=== PATIENT | male | born 1950 | race Caucasian/White ===

== ENCOUNTER 2022-08-27 09:48 | Outpatient (CLI) | payer MEDICARE, SELFPAY ==
--- NOTE | 2022-08-27 10:12 | ECG_ITS ---
Measurements Intervals [place] Rate: 66 P: 80 TN: 184 QRS: -1 QRSD: 108 T: 51 QT: 394 QTc: 415 Interpretive Statements SINUS RHYTHM WITH SINUS ARRHYTHMIA INCOMPLETE RIGHT BUNDLE BRANCH BLOCK CONSIDER INFERIOR INFARCT, AGE INDETERMINATE ABNORMAL ECG NO PREVIOUS ECG AVAILABLE FOR COMPARISON Electronically Signed On 08-27-2022 11:53:16 CDT by Sherman Burt D.O.
[2022-08-27 10:38] LABS: Hemoglobin A1C 5.9 % (<5.7)
[2022-08-27 10:45] LABS: Albumin Level 4.7 g/dL (3.5-5.1); Estimated Glomerular Filt Rate 60; Glucose 102 mg/dL (65-110)
[2022-08-27 10:51] LABS: Hematocrit 43.7 % (42.0-52.0); Hemoglobin 15.1 g/dL (14.0-18.0)
[2022-08-27 10:58] LABS: Urine Cotinine NEGATIVE
== END 2022-08-27 09:49 | disposition home or self-care (01) ==
PROVIDERS: Visit Provider Orthopaedic Surgery
DX: M16.12 Unilateral primary osteoarthritis, left hip (principal); E78.5 Hyperlipidemia, unspecified; E55.9 Vitamin D deficiency, unspecified; J44.9 Chronic obstructive pulmonary disease, unspecified; I10 Essential (primary) hypertension; I45.10 Unspecified right bundle-branch block
CPT/HCPCS: 36415; 80307; 82040; 82565; 82947; 83036; 85014; 85018; 93005

== ENCOUNTER 2022-09-26 13:07 | Outpatient (CLI) | payer MEDICARE, SELFPAY ==
--- NOTE | ~2022-09-26 | XR_ITS ---
EXAMINATION: XR lg joint inject/asp w image DATE: 09/26/2022 14:01 INDICATION: Right hip pain. TECHNIQUE: A time-out was performed to verify the patient's name, date of , and procedure to b e performed. The procedure including the risks, benefits, and alternatives was discussed with the pat ient. Risks discussed included bleeding and infection. The patient understood the risks and agreed to proceed. The skin overlying the right hip joint was prepped and draped in usual sterile fashion. A nesthetic was administered with 1% lidocaine subcutaneously. A 22 G needle was advanced under fluoro scopic guidance into the joint. Subsequently, injectate consisting of 5 mL 0.5% bupivacaine and 1 mL 80 mg/mL Depo-Medrol was instilled. The needle was removed and the entry site was cleaned and dress ed. There were no immediate complications. Fluoroscopy exposure time was 0.1 minutes. The total numb er of images was 1. FINDINGS: Real-time fluoroscopy demonstrates the needle in the right hip joint. Patient's pain prior to procedure:4/10. Patient's pain following the procedure: 0/10. IMPRESSION: 1. Fluoroscopy guided right hip joint injection of local anesthetic and steroid with decrease in the patient's presenting pain. Reviewed, dictated and finalized at location A.
== END 2022-09-26 13:08 | disposition home or self-care (01) ==
PROVIDERS: PCP Physician Assistant Medical; Visit Provider Orthopaedic Surgery
DX: M70.61 Trochanteric bursitis, right hip (principal); M25.551 Pain in right hip
CPT/HCPCS: 20610; 77002; J1040

== ENCOUNTER 2022-12-27 11:23 | Outpatient (CLI) | payer MEDICARE, SELFPAY ==
[2022-12-27 13:12] LABS: Basophils Absolute Auto 0.1 K/mm3 (0.0-0.1); Basophils Percent Auto 1.2 % (0.2-1.2); Eosinophils Absolute Auto 0.3 K/mm3 (0-0.3); Eosinophils Percent Auto 2.5 % (0-4.4); Hematocrit 45.2 % (42.0-52.0); Hemoglobin 15.2 g/dL (14.0-18.0); Immature Granulocyte Absolute 0.05 K/mm3 (0.00-0.031); Immature Granulocyte Percent A 0.5 % (0-0.5); Lymphocytes Absolute Auto 2.91 K/mm3 (0.9-3.2); Lymphocytes Percent Auto 28.4 % (18.3-44.2); Mean Corpuscular HGB Conc 33.6 g/dl (32-36); Mean Corpuscular Hemoglobin 32.6 pg (26-34); Mean Platelet Volume 9.1 fl (7.4-10.4); Monocytes Absolute Auto 0.9 K/mm3 (0.1-0.6); Monocytes Percent Auto 9.1 % (2.6-8.5); Neutrophils Percent Auto 58.3 % (45.5-73.1); Platelet Count Result 396 k/mm3 (150-375); Red Blood Count 4.66 M/mm3 (4.6-6.20); Red Cell Distribution Width 12.8 % (11.5-14.5); White Blood Count 10.2 K/mm3 (4.5-10.0)
[2022-12-27 13:27] LABS: Hemoglobin A1C 5.8 % (<5.7)
[2022-12-27 13:37] LABS: Albumin Level 4.9 g/dL (3.5-5.1)
[2022-12-27 13:47] LABS: Anion Gap 11 mmol/L (8-16); Blood Urea Nitrogen 20 mg/dL (9-20); Calcium 9.8 mg/dL (8.4-10.2); Carbon Dioxide 26 mmol/L (22-30); Chloride 101 mmol/L (98-107); Estimated Glomerular Filt Rate > 60; Glucose 101 mg/dL (65-110); Potassium 4.5 mmol/L (3.4-5.0); Sodium 138 mmol/L (137-145)
[2022-12-27 14:48] LABS: Urine Cotinine NEGATIVE
== END 2022-12-27 11:24 | disposition home or self-care (01) ==
PROVIDERS: Anesthesiology; PCP Physician Assistant Medical; Visit Provider Orthopaedic Surgery
DX: M16.12 Unilateral primary osteoarthritis, left hip (principal); Z79.899 Other long term (current) drug therapy; I10 Essential (primary) hypertension; Z72.0 Tobacco use; Z01.818 Encounter for other preprocedural examination
CPT/HCPCS: 80048; 80307; 82040; 83036; 85025; 87081

== ENCOUNTER 2023-01-21 19:08 | Observation (INO) | payer MEDICARE, SELFPAY ==
[2022-12-27 12:05] VITALS: BMI 39.1
--- NOTE | 2022-12-27 12:34 | PC.NURSE ---
Report to the Outpatient Waiting Room, entrance under the green pavilion located off [facility], at time 1000 on date __01/20/23 . Planned Procedure Time: ___1200 . Time changes happen often and if your time is changed the preop area will call you the afternoon before. - You and your visitor will be asked to self-screen and do not enter if you have any COVID symptoms. - A mask is optional within the hospital at this time. Patients may have clear liquids (water, carbonated beverages, clear teas, apple juice) until 3 hours prior to surgery with a maximum of 20 ounces. - No food from midnight until time of surgery - Infants may have breast milk until 4 hours before surgery, formula 6 hours prior to surgery. - Children will be allowed to drink immediately following surgery. If applicable, please bring a bottle or sippy cup to assist with drinking. Juice, water, soda, and popsicles are readily available. For infants on formula, please bring formula the day of surgery. Pacifiers are allowed. Take the following medications with a SIP of water the morning of surgery: ____TRELEGY INHALER,HYDROCODONE IF NEEDED FOR PAIN,VENLAFAXINE DO NOT STOP ANY OF YOUR OTHER PRESCRIPTION MEDICATIONS PRIOR TO SURGERY ?EXCEPT THE FOLLOWING Medications to discontinue per physician _PT STATES ALL VITAMINS AND SUPPLEMENTS AND__ASPIRIN AND ADVIL HOLD 7 DAYS PRE OP_PER DR VIGIL.LAST DOSE 01/12/23 Please no make-up, nail scottish, hairspray, perfume, deodorant, or body powder the day of surgery. No jewelry (including any body piercings) or valuables the day of surgery, leave them at home. Please take a shower or bath the night before, or the morning of, surgery with an antibacterial soap. Wear comfortable, loose fitting clothing. Children are encouraged to wear pajamas. - Jewelry must be removed prior to entering the operating room. Rings and piercings that are not removed may be cut off. - The hospital will not accept responsibility for valuables. - Please leave all valuables, including medications, at home the day of surgery. If you are going home after surgery, a licensed laundry route driver must drive you home. - NO public transportation without another adult if you receive anesthesia. - We recommend that an adult stay with you for 24 hours following discharge. - We also recommend that you do not drive, make important decision, drink alcoholic beverages, or take any drugs that were not prescribed by your health care provider for at least 24 hours after your discharge time. For Pediatric surgeries, we recommend two adults accompany the child home. Follow any additional instructions given to you from your surgeon. If you or anyone in your household have experienced Covid symptoms in the past week, please notify your surgeon or the nurse liaison at the phone number below for possible testing. VERBAL AND WRITTEN instructions given to ___PT AND DEB and asked if any additional questions and then verbalized understanding. Patient advised to call surgeon office or pre surgery nurse liaison [phone] if any additional questions.
[2022-12-27 12:53] VITALS: BP 161/80; PULSE 86; RESP 18; TEMP 37.2; O2SAT 95
[2023-01-20] VITALS (15 sets, daily range): BP systolic 104–140; BP diastolic 48–93; PULSE 66–89; RESP 12–20; TEMP 36.4–36.8; O2SAT 91–99
[2023-01-20] MEDS: ACETAMINOPHEN 500 MG TABLET 1000 MG PO ×3 (10:37→20:16)
--- NOTE | 2023-01-20 10:52 | WPDANESEPPF ---
Anes - Initial Pre Proc Eval Procedure: Operation Date: 01/20/23 12:00 Proposed Procedures p Left Total Hip Arthroplasty - Willard Hester MD Date/Time: 01/20/23 10:52 Surgeon: Willard Hester MD Pre Op Diagnosis: Prim O A Left Hip Patient Data Age: 72 Gender: M Height: 1.77 m Weight: 108 kg Last Vital Signs Temp 37.2 C 12/27/22 12:53 Pulse 86 12/27/22 12:53 Resp 18 12/27/22 12:53 BP 161/80 H 12/27/22 12:53 Pulse Ox 95 12/27/22 12:53 O2 Del Method Room Air 12/27/22 12:53 Allergies Allergy/AdvReac Type Severity Reaction Status Date / Time Penicillins Allergy Unknown unknown Verified 12/27/22 12:07 Home Medications Medication Instructions Recorded Confirmed Type aspirin 81 mg tablet,delayed 81 mg PO DAILY 04/07/19 12/31/22 History release (Adult Low Dose Aspirin) coenzyme Q10 200 mg capsule (Co 200 mg PO DAILY 04/07/19 12/31/22 History Q-10) omega-3 fatty acids 1,000 mg 1,000 mg PO DAILY 04/07/19 12/31/22 History capsule (Fish Oil Concentrate) atorvastatin 40 mg tablet 40 mg PO DAILY #90 tabs 06/03/22 12/31/22 Rx fluticasone fur. 100 mcg-umeclid See Rx Instructions .Route 06/03/22 12/31/22 Rx 62.5 mcg-vilant 25 mcg .COMPLEX ##60 inhalat.powder (Trelegy Ellipta) hydrochlorothiazide 12.5 mg tablet 12.5 mg PO DAILY #90 tabs 06/03/22 12/31/22 Rx magnesium oxide 400 mg (241.3 mg 400 mg PO DAILY #90 tabs 06/03/22 12/31/22 Rx magnesium) tablet pantoprazole 20 mg tablet,delayed 20 mg PO QAM 90 days #90 tabs 06/03/22 12/31/22 Rx release venlafaxine 75 mg capsule,extended 75 mg PO QAM #90 caps 06/03/22 12/31/22 Rx release 24 hr hydrocodone 5 mg-acetaminophen 325 1 tablet PO Q6H PRN pain #30 tabs 08/05/22 12/31/22 Rx mg tablet varenicline 1 mg tablet (Chantix 1 mg PO BID #60 tabs 11/18/22 12/31/22 Rx Continuing Month Box) amlodipine 5 mg tablet 5 mg PO HS 12/27/22 12/27/22 History cholecalciferol (vitamin D3) 125 125 mcg PO DAILY 12/27/22 12/27/22 History mcg (5,000 unit) tablet cyanocobalamin (vitamin B-12) 1,000 mcg PO DAILY 12/27/22 12/27/22 History 1,000 mcg tablet diazepam 5 mg tablet 5 mg PO PRN PRN Pain 12/27/22 12/27/22 History ibuprofen 200 mg tablet (Advil) 400 mg PO Q6H PRN Pain 12/27/22 12/27/22 History Patient hx anesthesia problems: none Family hx anesthesia problems: none Results Review: All pre-operative results and documents have been reviewed as part of the pre-operative evaluation. [facility] Past Medical History Medical History Anxiety Dyslipidemia Essential hypertension GERD (gastroesophageal reflux disease) Multinodular goiter TAMI (obstructive sleep apnea) Surgical perforation of duodenum Vitamin D deficiency Surgical History Surgical History History of cervical spinal surgery History of spinal surgery Family History Family History Father Acute myocardial infarction Diabetes mellitus Malignant neoplasm of prostate Other Family history of cardiovascular disease Hypertension Social History Social History Social History: pt previously smoked a pack and a half a day. He has quit. Smoking packs per day: 1.5 Smoking cigarettes per day: 30.0 Years smoked: 50 Smoking pack-years: 75.00 Smoking status: Former smoker Tobacco type: cigarettes Smoking end date: 11/25/22 Additional smoking assessment comments: DENIES ANY FORM OF TOBACCO USE Alcohol intake: current Drinks per week: 21 Substance use: never Substance use type: does not use Lack of Transportation: No Lack of Food: Never True Current Housing: I Have Housing Concerned About Future Housing: No Difficulty Paying Gas/Electric Bills: No Difficulty Paying for Meds: No Currently Unemployed: No Ed
--- NOTE | 2023-01-20 10:53 | WPDHPUPDATE1 ---
History and Physical Update Update Date/Time: 01/20/23 10:53 History and Physical has been reviewed, including an updated exam of the patient. There are NO changes in the patient's condition. Risks, benefits, and alternatives have been discussed and questions answered. Patient agrees to proceed with procedure.
[2023-01-20] MEDS: LACTATED RINGERS 1,000 ML 30 ML IV CONT ×2 (11:10→14:05)
[2023-01-20] MEDS: TRANEXAMIC ACID 1,000MG/ISO100 1,000 MG/100 ML BAG 200 MG IVPB (11:10)
[2023-01-20] MEDS: ceFAZolin 3 GM/D5W 100 ML 100 ML IVPB (11:34)
[2023-01-20] MEDS: fentaNYL CITRATE INJ (*CRX) 100 MCG/2 ML VIAL 25 MCG IV PUSH ×7 (14:26→15:25)
--- NOTE | 2023-01-20 15:37 | W.PM.PROC2 ---
Procedure Note - Detailed Date of Procedure 01/20/23 Pre-op Diagnosis Prim O A Left Hip Post-op Diagnosis Other (1. DJD left hip 2. Partial abductor muscle tear) Procedure Performed 1. Left Total Hip Arthroplasty with abductor muscle repair. Surgeon Willard Hester MD Plastic Maker Leonarda Mccarthy PA-C Anesthesia General Findings Partial abductor tearing. Repaired with multiple Ethibond suture. Severe djd with osteophytes and loose bodies. Type A femur required distal reaming. He complained of leg being short preoperatively. Partial correction was performed. Description of Procedure The patient was given preoperative antibiotics. A general anesthetic was administered. The patient was carefully placed in the lateral decubitus position on the PEG board. The shoulders and hips were carefully positioned for component and leg length positioning reference. The hip was prepped and draped in the usual sterile fashion. A longitudinal incision was created over the posterior aspect of the greater trochanter. Careful dissection was brought down through the deep fascia with electrocautery. A minimally invasive optimized posterior approach to the hip was performed. The short external rotators and capsule were taken down in an L-shaped capsulotomy. The tissue was tagged for later repair using number 2 high strength suture. The femoral neck was measured and taken in situ. The femoral head was removed. The acetabulum was carefully exposed. The inferior capsule was released. The labrum was resected. The acetabulum was sequentially reamed to the intended cup size. The cup was impacted into position with excellent press-fit. Typical anatomic landmarks, including the bony contact points as well as the inferior transverse acetabular ligament were used to confirm cup positioning with preoperative templating. Attention was turned to the femur, which was carefully exposed. The hip was reamed and then broached sequentially. Flexible reaming was done as well up to 13mm. Excellent proximal press-fit was obtained with the broach. The hip was trialed. Measurements were utilized, including the lesser trochanter as well as the center of the femoral head and the tip of the trochanter, and excellent assessment of the offset and leg lengths were confirmed. The real component was impacted into position. Trialing confirmed appropriate leg length and offset with soft tissue balancing as well apparent feel of the leg, both at the knee and the heel. Soft tissues were assessed using the the iliotibial band. Reduction of the posterior capsule and external rotators were also used as a secondary assessment. The hip was copiously irrigated with pulsatile lavage antibiotic solution periodically throughout the procedure. The real components were then assembled and reduced. The hip was stable throughout typical maneuvers, including extension, external rotation to 70 degrees, the position of sleep as well as flexion to 90 degrees with internal rotation past 35 degrees. The shake test confirmed stability without impingement. Osteophytes were removed from the anterior acetabulum. The short external rotators and capsule were repaired back to the posterior trochanter through drill holes. The gluteus medius split partial tear was converged and reapproximated to the greater trochanter. The deep fascia was repaired with running number 2 Quill suture, followed by 2-0 Stratafix suture and 3-0 Stratafix suture in the dermis. Steri-Strips were placed on the skin, followed by a sterile silver occlusive dressing. There were no complications. Meticulous hemostasis was maintained with the AquaMantys device. The patient was brought to the recovery room in stable condition. There were no complications. Physician assistant bookkeeper, Leonarda Mccarthy PA-C, required for surgery; including patient positioning, draping, tissue retraction, maintaining instrument position, hip dislocation/ relocation, wound closure, and d
[2023-01-20] MEDS: ASPIRIN 81 MG ENTERIC TABLET PO (16:59)
[2023-01-20] MEDS: MELOXICAM 7.5 MG TABLET PO (17:00)
[2023-01-20] MEDS: SENNA/DOCUSATE SODIUM TABLET 2 TAB PO (17:00)
[2023-01-20 17:11] LABS: Hematocrit 40.6 % (42.0-52.0); Hemoglobin 13.5 g/dL (14.0-18.0)
--- NOTE | 2023-01-20 17:41 | ADMGEN ---
This patient, Henrry Yan, was admitted to Medical Room 250-01. Patient/family oriented to hospital policies and general routines including ID bracelet, bed and alarms, visiting hours, pain management, procedures, bathroom and other care routines, personal items, smoking policy, room service/diet, and visiting hours. Information on how to activate the Rapid Response Team has been discussed. Patient/Family are encouraged to report perceived risks to care and to ask questions if they do not understand what they are told or what they should do.
[2023-01-20] MEDS: ceFAZolin 2 GM/D5W 50 ML 2 GM/50 ML BAG IVPB (20:15)
[2023-01-20] MEDS: ATORVASTATIN 40 MG TABLET PO (20:16)
[2023-01-20] MEDS: amLODIPine BESYLATE 5 MG TABLET PO (20:16)
[2023-01-20] MEDS: FAMOTIDINE 20 MG TABLET PO (20:16)
[2023-01-21] VITALS (10 sets, daily range): BP systolic 109–140; BP diastolic 56–72; PULSE 71–80; RESP 16–20; TEMP 35.9–36.8; O2SAT 92–98
--- NOTE | ~2023-01-21 | XR_ITS ---
EXAMINATION: XR hip LT min 2V DATE: 01/20/2023 14:18 INDICATION: Postoperative evaluation following left total hip arthroplasty TECHNIQUE: Anteroposterior and lateral views of the left hip were obtained. COMPARISON: 06/03/2022 FINDINGS: Interval placement of a noncemented left total hip arthroplasty which appears well seated in near deepti tomic alignment. The acetabular component is affixed with a single screw. Small amount of expected collins bcutaneous gas in the postoperative bed. No fractures identified. IMPRESSION: 1. Left total hip arthroplasty, negative for postoperative purposes. Reviewed, dictated and finalized at location A.
[2023-01-21] MEDS: ceFAZolin 2 GM/D5W 50 ML 2 GM/50 ML BAG IVPB ×2 (03:14→12:41)
[2023-01-21] MEDS: ACETAMINOPHEN 500 MG TABLET 1000 MG PO ×4 (03:14→21:48)
[2023-01-21 05:49] LABS: Basophils Absolute Auto 0.1 K/mm3 (0.0-0.1); Basophils Percent Auto 0.3 % (0.2-1.2); Hematocrit 35.8 % (42.0-52.0); Immature Granulocyte Absolute 0.15 K/mm3 (0.00-0.031); Immature Granulocyte Percent A 0.8 % (0-0.5); Lymphocytes Absolute Auto 1.41 K/mm3 (0.9-3.2); Lymphocytes Percent Auto 7.1 % (18.3-44.2); Mean Corpuscular HGB Conc 33.5 g/dl (32-36); Mean Corpuscular Hemoglobin 32.8 pg (26-34); Mean Corpuscular Volume 97.8 fl (80-100); Mean Platelet Volume 9.4 fl (7.4-10.4); Monocytes Absolute Auto 1.5 K/mm3 (0.1-0.6); Monocytes Percent Auto 7.7 % (2.6-8.5); Neutrophils Absolute Auto 16.6 K/mm3 (1.3-6.7); Neutrophils Percent Auto 84.1 % (45.5-73.1); Platelet Count Result 313 k/mm3 (150-375); Red Blood Count 3.66 M/mm3 (4.6-6.20); Red Cell Distribution Width 12.8 % (11.5-14.5); White Blood Count 19.8 K/mm3 (4.5-10.0)
[2023-01-21 05:58] LABS: Anion Gap 8 mmol/L (8-16); Blood Urea Nitrogen 25 mg/dL (9-20); Calcium 8.4 mg/dL (8.4-10.2); Carbon Dioxide 24 mmol/L (22-30); Chloride 102 mmol/L (98-107); Estimated CRCL calculation 66 ml/min; Estimated Glomerular Filt Rate 60; Glucose 121 mg/dL (65-110); Potassium 4.1 mmol/L (3.4-5.0); Sodium 134 mmol/L (137-145)
--- NOTE | 2023-01-21 07:51 | P.PNAN_ITS ---
Anes - Prog Note Post-Op Date/Time: 01/21/23 07:51 Cardiovascular status: normal Respiratory status: normal Airway patency: baseline Mental status: baseline Post-Op hydration status: normal Vital Signs: Last Vital Signs Temp 36.6 C 01/21/23 05:57 Pulse 73 01/21/23 05:57 Resp 18 01/21/23 05:57 BP 115/70 01/21/23 05:57 Pulse Ox 95 01/21/23 05:57 O2 Del Method Autopap 01/21/23 01:48 O2 Flow Rate 10 01/20/23 14:19 Pain Score (VAS): 0 I/O: Intake & Output 01/20/23 01/20/23 01/21/23 15:59 23:59 07:59 Intake Total 500 550 50 Balance 500 550 50 Laboratory Tests 01/21/23 05:15 01/21/23 05:15 01/20/23 01/20/23 01/21/23 10:22 16:59 05:15 WBC 19.8 H RBC 3.66 L Hgb 13.5 L 12.0 L Hct 40.6 L 35.8 L MCV 97.8 MCH 32.8 MCHC 33.5 RDW 12.8 Plt Count 313 MPV 9.4 Immature Gran % (Auto) 0.8 H Neut % (Auto) 84.1 H Lymph % (Auto) 7.1 L [place] % (Auto) 7.7 Eos % (Auto) 0.0 Baso % (Auto) 0.3 Lymph # (Auto) 1.41 [place] # (Auto) 1.5 H Eos # (Auto) 0.0 Baso # (Auto) 0.1 Abs Immat Gran (auto) 0.15 H Absolute Neuts (auto) 16.6 H Absolute Nucleated RBC 0.0 Nucleated RBC % 0.0 Sodium 134 L Potassium 4.1 Chloride 102 Carbon Dioxide 24 Anion Gap 8 BUN 25 H Creatinine 1.20 Estim Creat Clear Calc 66 Estimated GFR 60 Glucose 121 H Calcium 8.4 Blood Type O Positive Antibody Screen Negative Post-procedural complaints: none Patient Feedback: Patient satisfied with anesthetic care.
[2023-01-21] MEDS: FLUTICASONE/UMECLIDIN/VILANTER 100-62.5-25 MCG ELLIPTA 1 PUFF INHALATION (07:55)
[2023-01-21] MEDS: VARENICLINE 1 MG TABLET PO ×2 (08:32→17:12)
[2023-01-21] MEDS: hydroCHLOROthiazide 12.5 MG CAPSULE PO (08:32)
[2023-01-21] MEDS: oxyCODONE HCL (*CRX) 5 MG TAB IR 10 MG PO ×3 (08:32→17:11)
[2023-01-21] MEDS: MAGNESIUM OXIDE 400 MG TABLET PO (08:33)
[2023-01-21] MEDS: SENNA/DOCUSATE SODIUM TABLET 2 TAB PO (08:33)
[2023-01-21] MEDS: VENLAFAXINE HCL XR 75 MG CAP.ER.24H PO (08:33)
[2023-01-21] MEDS: PANTOPRAZOLE SOD SESQUIHYDRATE 20 MG TAB PO (08:33)
[2023-01-21] MEDS: MELOXICAM 7.5 MG TABLET PO ×2 (08:33→17:11)
[2023-01-21] MEDS: FAMOTIDINE 20 MG TABLET PO ×2 (08:33→21:48)
[2023-01-21] MEDS: ASPIRIN 81 MG ENTERIC TABLET PO ×2 (08:33→17:12)
--- NOTE | 2023-01-21 13:21 | PM.PNORT ---
Progress Note: A&P Assessment and Plan (1) Status post total hip replacement, left: Code(s): Z96.642 - Presence of left artificial hip joint Status: Acute (2) Leukocytosis: Code(s): D72.829 - Elevated white blood cell count, unspecified Status: Acute Plan POD #1 Total hip arthroplasty. Patient has an elevated white count today. 19.8 today. Likely post surgical stress response. Will consult the hospitalist. He does have a history of an infected wound on his back after a previous surgery. He is on IV antibiotics and will be given 3 weeks of Keflex post op. Once he is evaluated by the hospitalist and cleared medically patient will be okay for discharge. If he is still here tomorrow, we will recheck his cell counts. He did have an abductor tendon tear and repair during surgery. I recommend using a walker and protected weight bearing for at least 6 weeks. Patient shows good understanding. He has had initial PT and OT and is tolerating it well. Subjective Subjective Date/Time Seen: 01/21/23 13:21 Interval history: Patient resting comfortably in bed. No acute distress. No N/V/D. No chest pain or shortness or breath. No fever. No urinary symptoms. Patient states he does not feel sick. Review of Systems Review of Systems: All systems reviewed & are unremarkable except as noted in HPI and below Exam Narrative: Overweight 72 y/o Male. Resting comfortably in bed. Wearing compression socks bilaterally. Dressing dry and intact with no drainage. Moderate swelling. No ecchymosis. No erythema. No hematoma. Range of motion limited due to pain. Calf nontender. Thigh nontender. Neurologic status intact. No varicosities. Distal pulses palpable. Objective Data Vital Signs Vital Signs: Vital Signs - 24 hr 01/20/23 14:04 01/20/23 14:19 01/20/23 14:34 Temperature 97.9 F Pulse Rate 81 72 73 Respiratory Rate 18 14 12 Blood Pressure 140/69 124/70 104/53 L Pulse Oximetry 97 99 96 Oxygen Delivery Simple Face Mask Simple Face Mask Room Air Oxygen Flow Rate 10 10 01/20/23 14:49 01/20/23 15:04 01/20/23 15:19 Temperature Pulse Rate 69 67 69 Respiratory Rate 13 12 15 Blood Pressure 106/62 118/70 118/70 Pulse Oximetry 92 92 92 Oxygen Delivery Room Air Room Air Room Air Oxygen Flow Rate 01/20/23 15:34 01/20/23 15:55 01/20/23 16:10 Temperature 97.6 F 97.6 F Pulse Rate 71 68 66 Respiratory Rate 18 20 18 Blood Pressure 105/75 119/61 123/66 Pulse Oximetry 91 92 92 Oxygen Delivery Room Air Oxygen Flow Rate 01/20/23 17:40 01/20/23 20:34 01/20/23 21:09 Temperature 97.8 F 98.3 F Pulse Rate 77 73 Respiratory Rate 18 18 Blood Pressure 125/60 122/53 L Pulse Oximetry 96 94 Oxygen Delivery Room Air Oxygen Flow Rate 01/20/23 20:00 01/20/23 21:37 01/20/23 22:00 Temperature 98.3 F Pulse Rate 73 76 76 Respiratory Rate 18 20 18 Blood Pressure 104/48 L Pulse Oximetry 94 96 93 Oxygen Delivery Room Air Autopap Oxygen Flow Rate 01/21/23 01:23 01/21/23 01:48 01/21/23 05:23 Temperature 97.7 F 97.9 F Pulse Rate 76 71 73 Respiratory Rate 18 20 18 Blood Pressure 113/56 L 109/63 Pulse Oximetry 93 96 93 Oxygen Delivery Autopap Oxygen Flow Rate 01/21/23 05:57 01/21/23 07:55 01/21/23 08:10 Temperature 97.9 F Pulse Rate 73 Respiratory Rate 18 Blood Pressure 115/70 Pulse Oximetry 95 92 Oxygen Delivery Room Air Room Air Oxygen Flow Rate 01/21/23 08:22 01/21/23 08:00 01/21/23 12:15 Temperature 97.7 F 97.3 F L Pulse Rate 77 75 Respiratory Rate 18 17 Blood Pressure 137/67 118/62 Pulse Oximetry 97 98 Oxygen Delivery Room Air Oxygen Flow Rate Intake/Output Intake/Output: Intake & Output 01/18/23 01/19/23 01/20/23 01/21/23 23:59 23:59 23:59 23:59 Intake Total 1050 290 Balance 1050 290 Meds/Results Medications: Active Medications Generic Name Dose Route Start Last Admin Trade Name Freq PRN Reason Stop Dose Ad
--- NOTE | 2023-01-21 15:08 | PM.IMCN ---
Assessment and Plan Assessment and plan (1) Status post total hip replacement, left: Code(s): Z96.642 - Presence of left artificial hip joint Status: Acute (2) Leukocytosis: Code(s): D72.829 - Elevated white blood cell count, unspecified Status: Acute Plan Problem List 1. Status post total hip replacement, left Surgery on 01/20, no immediate postop complications. IV antibiotics, discharged with 3 weeks of Keflex postop. Ortho recommends walker and protected weight-bearing for at least 6 weeks PT and OT to evaluate and treat Continue pain management Wound assessment q6H for signs of infection No history of diabetes, last A1c on 12/27 and 5.8 Continue incentive spirometer, monitor pulse ox 2. Leukocytosis Reassess white count in the morning No patient complaints that require investigation as secondary site of potential infection Hold inpatient for continued assessment of incision site and repeat lab work defer atb choice to ortho post-reassessment of labs Chronic Conditions -continue home CPAP for sleep apnea -continue HTN medication, monitor blood pressure -continue home meds - atorvastatin, Effexor, Chantix, magnesium, Trelegy inhaler, diazepam p.r.n. for pain -held home aspirin, vitamin D3, coenzyme Q10, vitamin B12, hydrocodone-acetaminophen, ibuprofen, omega-3 fatty acids GI Prophylaxis: Home pantoprazole continued DVT Prophylaxis: SCD and Burton hose Lines: pIV Code Status: Full code HPI Data of Consult Consult date: 01/22/23 Requesting Physician: Willard Hester MD Primary Care Provider: Shari Vargas PA-C Consult Narrative Reason for consult: Elevated WBC Narrative: Henrry Yan is a 72 year old male who underwent a left total hip replacement yesterday, 01/20. Patient has a past medical history of COPD, hypertension, hyperlipidemia and prior diskectomy (lumbar) with post-op complications (infection requiring second surgery in 2019). No immediate postop complications noted per chart review. Care plan was for discharge today, however lab work showed an elevated white count of 19.8. Per orthopedic note, likely postsurgical stress response. Incision with mild ecchymosis and scant erythema to distal aspect of incision. No drainage and remains well approximated. Patient denies any increase in pain, increased sputum production, shortness of breath, fever, or urinary symptoms. No history of diabetes - last A1C was 5.8 on 12/27. Review of Systems Review of Systems: Patient denies fever, chills, nausea, vomiting, diarrhea, chest pain, increased sputum production or changes in his baseline work of breathing. No increased pain at incision site. All systems reviewed & are unremarkable except as noted in HPI and below PMFSH Past Medical History Medical History Anxiety Dyslipidemia Essential hypertension GERD (gastroesophageal reflux disease) Multinodular goiter TAMI (obstructive sleep apnea) Surgical perforation of duodenum Vitamin D deficiency Surgical History Surgical History History of cervical spinal surgery History of spinal surgery Status post total hip replacement, left Family History Family History (Updated 01/21/23 @ 15:41 by Marine Posada APRN) Father Acute myocardial infarction Diabetes mellitus Malignant neoplasm of prostate Sibling Family history of cardiovascular disease Mother Family history of cardiovascular disease Other Hypertension Social History Social History (Updated 01/21/23 @ 15:42 by Marine Posada APRN) Social History: Patient currently lives at home with his , Meghana Yan. Surrogate decisionmaker is . Full code. Former smoker - cessation in July 14, 2022 (as of 01/21/23). Smoking packs per day: 1.5 Smoking cigarettes per day: 30.0 Years smoked: 50 Sm
--- NOTE | 2023-01-21 15:23 | PCOTNOTE ---
Per OT/L. Asked for [place]E to address tub transfer with Patient this afternoon. Attempted to have Patient practice a tub transfer and educate on AE. Patient declined stating he does not need to practice and refused this date.
[2023-01-21] MEDS: ATORVASTATIN 40 MG TABLET PO (21:48)
[2023-01-21] MEDS: amLODIPine BESYLATE 5 MG TABLET PO (21:48)
[2023-01-22] MEDS: ACETAMINOPHEN 500 MG TABLET 1000 MG PO (03:17)
[2023-01-22 04:03] VITALS: BP 141/69; PULSE 68; RESP 16; TEMP 36.8; O2SAT 95
[2023-01-22 05:52] LABS: Basophils Absolute Auto 0.1 K/mm3 (0.0-0.1); Basophils Percent Auto 0.6 % (0.2-1.2); Eosinophils Absolute Auto 0.1 K/mm3 (0-0.3); Eosinophils Percent Auto 0.8 % (0-4.4); Hematocrit 35.9 % (42.0-52.0); Hemoglobin 11.7 g/dL (14.0-18.0); Immature Granulocyte Percent A 0.8 % (0-0.5); Lymphocytes Percent Auto 21.1 % (18.3-44.2); Mean Corpuscular HGB Conc 32.6 g/dl (32-36); Mean Corpuscular Hemoglobin 32.9 pg (26-34); Mean Corpuscular Volume 100.8 fl (80-100); Mean Platelet Volume 9.5 fl (7.4-10.4); Monocytes Absolute Auto 1.3 K/mm3 (0.1-0.6); Neutrophils Absolute Auto 7.8 K/mm3 (1.3-6.7); Neutrophils Percent Auto 65.7 % (45.5-73.1); Platelet Count Result 278 k/mm3 (150-375); Red Blood Count 3.56 M/mm3 (4.6-6.20); Red Cell Distribution Width 13.1 % (11.5-14.5); White Blood Count 11.9 K/mm3 (4.5-10.0)
--- NOTE | 2023-01-22 08:00 | PM.IMPN ---
Progress Note: A&P Assessment and Plan (1) Status post total hip replacement, left: Code(s): Z96.642 - Presence of left artificial hip joint Status: Acute Assessment and Plan: Status post total hip replacement, left Surgery on 01/20, no immediate postop complications. IV antibiotics, discharged with 3 weeks of Keflex postop. Ortho recommends walker and protected weight-bearing for at least 6 weeks PT and OT to evaluate and treat Continue pain management Wound assessment q6H for signs of infection No history of diabetes, last A1c on 12/27 and 5.8 Continue incentive spirometer, monitor pulse ox (2) Leukocytosis: Code(s): D72.829 - Elevated white blood cell count, unspecified Status: Acute Assessment and Plan: ?Leukocytosis Reassess white count in the morning No patient complaints that require investigation as secondary site of potential infection Hold inpatient for continued assessment of incision site and repeat lab work defer abx choice to ortho post-reassessment of labs WBC much improved today, 11.9. Anticipate discharge today. Plan WBC much improved at 11.9. Anticipate ortho d/c'ing patient today. Subjective Date/time seen: 01/22/23 08:00 Interval history: HPI obtained from chart, Henrry Yan is a 72 year old male who underwent a left total hip replacement yesterday, 01/20.? Patient has a past medical history of COPD, hypertension, hyperlipidemia and prior diskectomy (lumbar) with post-op complications (infection requiring second surgery in 2019).? No immediate postop complications noted per chart review.? Care plan was for discharge today, however lab work showed an elevated white count of 19.8.? Per orthopedic note, likely postsurgical stress response.? Incision with mild ecchymosis and scant erythema to distal aspect of incision.? No drainage and remains well approximated.? Patient denies any increase in pain,? increased sputum production, shortness of breath, fever, or urinary symptoms.? No history of diabetes - last A1C was 5.8 on 12/27. 01/22-patient is doing well today. He is already dressed in his street clothes and ready to discharge. Orthopedics is sending him home today. He denies any complaints for me today. Labs and vital signs reviewed patient appears medically ready for discharge. Review of Systems Review of Systems: All systems reviewed & are unremarkable except as noted in HPI and below Exam Narrative: General: well appearing, well developed, well nourished, appears stated age. HEENT: normocephalic, atraumatic. Mucous membranes moist. EOMI, PERRLA, bilateral sclera anicteric, no conjunctival injection. Neck supple without JVD, lymphadenopathy, or bruit. Respiratory: clear to ascultation bilaterally. No rales/rhonic/wheezes. Cardiovascular: Regular rate and rhythm, normal S1-S2 upon ascultation. No murmurs, rubs, or clicks. PMI is nondisplaced, capillary re-fill less than 3 second. Abdomen: Soft, flat, no pulsatile masses, non-distended and non-tender. No rebound, no guarding. No CVA tenderness, no hepatosplenomegaly. Bowel sounds present to all four quadrants. No high pitch or tinkling sounds, resonant to percussion. Extremities: No cyanosis, clubbing, or edema present. Pulses are palpable 2/2. Active ROM to all four extremities. Neuro: Alert and orientated x 4. PERRLA. Cranial nerves 2-12 intact without focal deficit. Skin: Warm, dry, and intact, without rash, erythema, or lesion. Lines: Incisions: Psych: pleasant, cooperative, normal speech, normal affect, no hallucinations, no dysarthia Objective Data Vital Signs Vital Signs: Vital Signs - 24 hr 01/21/23 08:10 01/21/23 08:22 01/21/23 12:15 Temperature 97.7 F 97.3 F L Pulse Rate 77 75 Respiratory Rate 18 17 Blood Pressure 137/67 118/62 Pulse Oximetry 97 98 Oxygen Delivery Room Air 01/21/23 16:54 01/21/23 21:54 01/21/23 20:00 Temperature 96.7 F L 98.2 F Pulse
[2023-01-22] MEDS: FLUTICASONE/UMECLIDIN/VILANTER 100-62.5-25 MCG ELLIPTA 1 PUFF INHALATION (08:06)
[2023-01-22 08:09] VITALS: O2SAT 96
--- NOTE | 2023-01-22 08:19 | PM.DS ---
DS: Admitting Diagnosis Discharge Date 01/22/23 Admitting Diagnosis Hip arthritis. DS: Discharge Diagnosis Discharge Diagnosis (1) Status post total hip replacement, left: Code(s): Z96.642 - Presence of left artificial hip joint Status: Acute Assessment and Plan: Postop day 1: Left total Hip arthroplasty. Patient tolerated procedure well. He did have an elevated white count after surgery, 19.8. He felt okay, but this was concerning and we decided to recheck the next morning. Next day it was down to 11.9. Will go home with extended antibiotics. He has a history of infection after surgery on his back. Intra-operatively he was found to have an abductor tendon tear. This was repaired. He will need to be protected weight bearing with a walker for the next 6 or more weeks. Pain manageable with pain medication. No numbness or tingling. We had a lengthy discussion regarding postoperative wound care, limitations, expectations, and exercises. Patient shows good understanding. He has had initial physical therapy and is tolerating it well. DVT prophylaxis: 81 mg baby aspirin b.i.d. for 14 days. Pain medication: Percocet. Patient has followup appointment with Dr. Hester in 3 weeks. DS: Summary Hospital Course Reason for hospitalization: Total hip arthroplasty Hospital Course: Patient tolerated procedure well. Post surgical leukocytosis of 19.8 on post op day 1. This was concerning. Rechecked the next morning and it was down to 11.9. No signs of infection. Has had initial PT/OT. Status at Discharge Functional status at discharge: uses cane/walker Overall status at discharge: patient is progressing back to baseline Time Spent with Patient Time attestation: Total time spent providing and/or coordinating discharge services: Exam Narrative: Overweight 72 y/o Male. Resting comfortably in bed. Wearing compression socks bilaterally. Dressing dry and intact with no drainage. Moderate swelling. Mild ecchymosis. Mild erythema at the distal portion of the wound. No hematoma. Range of motion limited due to pain. Calf nontender. Thigh nontender. Neurologic status intact. No varicosities. Distal pulses palpable. DS: Data Data Completed and Pending Labs on day of discharge: Labs from last 24 hours 01/22/23 05:24 WBC 11.9 H RBC 3.56 L Hgb 11.7 L Hct 35.9 L MCV 100.8 H MCH 32.9 MCHC 32.6 RDW 13.1 Plt Count 278 MPV 9.5 Immature Gran % (Auto) 0.8 H Neut % (Auto) 65.7 Lymph % (Auto) 21.1 [place] % (Auto) 11.0 H Eos % (Auto) 0.8 Baso % (Auto) 0.6 Lymph # (Auto) 2.50 [place] # (Auto) 1.3 H Eos # (Auto) 0.1 Baso # (Auto) 0.1 Abs Immat Gran (auto) 0.10 H Absolute Neuts (auto) 7.8 H Absolute Nucleated RBC 0.0 Nucleated RBC % 0.0 Discharge Plan Discharge Attending physician on discharge: Willard Hester Consulting providers: Marine Posada; Yosvany Delarosa; Michael Ayoub; Yuko Hernandez; Leonarda Mccarthy; Niesha Tony Discharging Clinician: Leonarda Mccarthy Patient Disposition: Home, Self-Care Activity: may shower Diet: as tolerated and regular Wound Care Instructions: follow printed instructions Discharge Instructions: See green instruction sheets Patient Instructions: Pain Management (GEN), Precautions after Total Joint Replacement Surgery (GEN), Hip Arthroscopy (GEN), Total Hip Replacement (GEN), Hip Abduction Pillow (GEN) Stand Alone Forms: General Discharge Instructions Follow-up/Referrals: Leonarda Mccarthy PA [Physician Human Geography Faculty Member] - Discharge Medications: New aspirin 81 mg tablet,delayed release (DR/EC) 81 mg PO BID 14 Days Qty: 28 0RF cephalexin 500 mg capsule 500 mg PO BID 21 Days Qty: 42 0RF Rx Instructions: Take twice a day for 3 weeks meloxicam 15 mg tablet 15 mg PO DAILY Qty: 30 0RF Rx Instructions: Cut in half. Take 1/2 in morning and 1/2 at night. Take with food. Stop i
[2023-01-22] MEDS: PANTOPRAZOLE SOD SESQUIHYDRATE 20 MG TAB PO (09:30)
[2023-01-22] MEDS: ASPIRIN 81 MG ENTERIC TABLET PO (09:31)
[2023-01-22] MEDS: MELOXICAM 7.5 MG TABLET PO (09:31)
[2023-01-22] MEDS: oxyCODONE HCL (*CRX) 5 MG TAB IR 10 MG PO (09:31)
[2023-01-22] MEDS: SENNA/DOCUSATE SODIUM TABLET 2 TAB PO (09:31)
[2023-01-22] MEDS: MAGNESIUM OXIDE 400 MG TABLET PO (09:31)
[2023-01-22] MEDS: VENLAFAXINE HCL XR 75 MG CAP.ER.24H PO (09:31)
[2023-01-22] MEDS: hydroCHLOROthiazide 12.5 MG CAPSULE PO (09:31)
[2023-01-22] MEDS: FAMOTIDINE 20 MG TABLET PO (09:31)
[2023-01-22] MEDS: VARENICLINE 1 MG TABLET PO (09:32)
--- NOTE | 2023-01-22 09:58 | PCPTNOTE ---
Patient refused treatment this session due to anticipated discharge and just working with OT. Educated patient on the importance of PT and performing his hip exercises to his tolerance, patient reported he understood. Patient continued to refuse PT this morning.
== END 2023-01-22 11:25 | disposition home or self-care (01) ==
LOC: ANHSURGERY 19:09 → ANH2MED 19:09
PROVIDERS: Physician Assistant Surgical; Student in an Organized Health Care Education/Training Program; Admitting Provider Orthopaedic Surgery; PCP Physician Assistant Medical; Visit Provider Orthopaedic Surgery
PROC: (CPT 27130; principal; 2023-01-20 12:00)
DX: M16.12 Unilateral primary osteoarthritis, left hip (principal); S76.212A Strain of adductor muscle, fascia and tendon of left thigh, initial encounter; R26.89 Other abnormalities of gait and mobility; Z99.89 Dependence on other enabling machines and devices; Z79.1 Long term (current) use of non-steroidal anti-inflammatories (NSAID); F41.9 Anxiety disorder, unspecified; E78.5 Hyperlipidemia, unspecified; I10 Essential (primary) hypertension; J44.9 Chronic obstructive pulmonary disease, unspecified; K21.9 Gastro-esophageal reflux disease without esophagitis; G47.33 Obstructive sleep apnea (adult) (pediatric); E66.9 Obesity, unspecified; Z68.38 Body mass index [BMI] 38.0-38.9, adult; E55.9 Vitamin D deficiency, unspecified; Z98.890 Other specified postprocedural states; Z87.891 Personal history of nicotine dependence; F10.90 Alcohol use, unspecified, uncomplicated; Z79.82 Long term (current) use of aspirin; Z79.891 Long term (current) use of opiate analgesic; Z79.899 Other long term (current) drug therapy
CPT/HCPCS: 27130; 27299; 36415; 73502; 80048; 80307; 82040; 83036; 85014; 85018; 85025; 86850; 86900; 86901; 87081; 94640; 97110; 97161; 97165; 97530; 97535; A9270; C1776; G0378; G0379; J0171; J0360; J0690; J1100; J1170; J1885; J2270; J2405; J2704; J2795; J3010; J7120

== ENCOUNTER 2023-10-06 09:34 | Outpatient (CLI) | payer MEDICARE, SELFPAY ==
[2023-10-06 10:14] LABS: Hematocrit 46.3 % (42.0-52.0)
[2023-10-06 10:29] LABS: Urine Cotinine NEGATIVE
[2023-10-06 10:29] LABS: Albumin Level 4.7 g/dL (3.5-5.1); Estimated Glomerular Filt Rate > 60; Glucose 99 mg/dL (65-110)
== END 2023-10-06 09:35 | disposition home or self-care (01) ==
LOC: ANHLAB 09:38
PROVIDERS: PCP Physician Assistant Medical; Visit Provider Orthopaedic Surgery
DX: M16.11 Unilateral primary osteoarthritis, right hip (principal); E78.5 Hyperlipidemia, unspecified; Z79.899 Other long term (current) drug therapy; D72.829 Elevated white blood cell count, unspecified
CPT/HCPCS: 80307; 82040; 82565; 82947; 85014; 85018

== ENCOUNTER 2023-10-22 09:42 | Outpatient (CLI) | payer MEDICARE, SELFPAY ==
--- NOTE | 2023-10-22 11:00 | ECG_ITS ---
Test Date: 2023-10-22 11:14:09 Measurements Intervals [place] Rate: 78 P: 38 RI: 193 QRS: 8 QRSD: 101 T: 51 QT: 386 QTc: 440 Interpretive Statements SINUS RHYTHM WITH OCCASIONAL SUPRAVENTRICULAR PREMATURE COMPLEXES POOR R WAVE PROGRESSION BASELINE ARTIFACT- I, II, III, AVR, AVL, AVF, V1, V4-V6 BORDERLINE ECG No previous ECG available for comparison Electronically Signed On 10-22-2023 11:22:06 CDT by Sherman Burt D.O.
[2023-10-22 11:29] LABS: Basophils Absolute Auto 0.1 K/mm3 (0.0-0.1); Basophils Percent Auto 1.1 % (0.2-1.2); Eosinophils Absolute Auto 0.5 K/mm3 (0-0.3); Eosinophils Percent Auto 5.3 % (0-4.4); Hematocrit 41.5 % (42.0-52.0); Hemoglobin 14.7 g/dL (14.0-18.0); Immature Granulocyte Absolute 0.05 K/mm3 (0.00-0.031); Immature Granulocyte Percent A 0.6 % (0-0.5); Lymphocytes Absolute Auto 2.15 K/mm3 (0.9-3.2); Mean Corpuscular HGB Conc 35.4 g/dl (32-36); Mean Corpuscular Hemoglobin 32.9 pg (26-34); Mean Corpuscular Volume 92.8 fl (80-100); Mean Platelet Volume 9.2 fl (7.4-10.4); Monocytes Absolute Auto 0.9 K/mm3 (0.1-0.6); Monocytes Percent Auto 9.5 % (2.6-8.5); Neutrophils Absolute Auto 5.3 K/mm3 (1.3-6.7); Neutrophils Percent Auto 59.5 % (45.5-73.1); Platelet Count Result 345 k/mm3 (150-375); Red Blood Count 4.47 M/mm3 (4.6-6.20); Red Cell Distribution Width 13.2 % (11.5-14.5); White Blood Count 8.9 K/mm3 (4.5-10.0)
[2023-10-22 11:38] LABS: Anion Gap 8 mmol/L (4-12); Blood Urea Nitrogen 17 mg/dL (9-20); Calcium 9.5 mg/dL (8.4-10.2); Carbon Dioxide 27 mmol/L (22-30); Chloride 103 mmol/L (98-107); Estimated Glomerular Filt Rate 54; Glucose 100 mg/dL (65-110); Potassium 4.2 mmol/L (3.4-5.0); Sodium 138 mmol/L (137-145)
[2023-10-22 12:47] LABS: MRSA (PCR) NOT DETECTED (NOT DETECTE)
== END 2023-10-22 09:43 | disposition home or self-care (01) ==
LOC: ANHSURGERY 09:45
PROVIDERS: Anesthesiology; PCP Physician Assistant Medical; Visit Provider Orthopaedic Surgery
DX: M16.11 Unilateral primary osteoarthritis, right hip (principal); Z01.818 Encounter for other preprocedural examination; Z51.81 Encounter for therapeutic drug level monitoring
CPT/HCPCS: 36415; 80048; 83036; 85025; 87641; 93005

== ENCOUNTER 2023-11-18 00:44 | Day surgery (SDC) | payer MEDICARE, SELFPAY ==
[2023-10-22 09:38] VITALS: BP 133/71; PULSE 64; RESP 16; TEMP 37.5; O2SAT 93; BMI 39.9
--- NOTE | 2023-10-22 10:32 | PC.NURSE ---
Report to the Outpatient Waiting Room, entrance under the green pavilion located off [facility], at time __10:30AM on date __11/18/23 . Planned Procedure Time: __12:30PM . Time changes happen often and if your time is changed the preop area will call you the afternoon before. - You and your visitor will be asked to self-screen and do not enter if you have any COVID symptoms. - A mask is optional within the hospital at this time. Patients may have clear liquids (water, carbonated beverages, clear teas, apple juice) until 3 hours prior to surgery with a maximum of 20 ounces. - No food from midnight until time of surgery. Take the following medications with a SIP of water the morning of surgery: ____TRELEGY ELLIPTA INHALER, AMLODIPINE, BUPROPION, VENLAFAXINE DO NOT STOP ANY OF YOUR OTHER PRESCRIPTION MEDICATIONS PRIOR TO SURGERY ?EXCEPT THE FOLLOWING Medications to discontinue per physician ___HOLD ASPIRIN, NSAIDS(IBUPROFEN) & ALL VITAMINS/SUPPLEMENTS 7 DAYS PRE-OP PER DR VIGIL Date to take last dose 11/10/23 Please no make-up, nail mauritian, hairspray, perfume, deodorant, or body powder the day of surgery. No jewelry (including any body piercings) or valuables the day of surgery, leave them at home. Please take a shower or bath the night before, or the morning of, surgery with an antibacterial soap. Wear comfortable, loose fitting clothing. - Jewelry must be removed prior to entering the operating room. Rings and piercings that are not removed may be cut off. - The hospital will not accept responsibility for valuables. - Please leave all valuables, including medications, at home the day of surgery. If you are going home after surgery, a licensed driver license technician must drive you home. - NO public transportation without another adult if you receive anesthesia. - We recommend that an adult stay with you for 24 hours following discharge. - We also recommend that you do not drive, make important decision, drink alcoholic beverages, or take any drugs that were not prescribed by your health care provider for at least 24 hours after your discharge time. Follow any additional instructions given to you from your surgeon. If you or anyone in your household have experienced Covid symptoms in the past week, please notify your surgeon or the nurse liaison at the phone number below for possible testing. Telephone instructions given to ___PATIENT & WIFE and asked if any additional questions and then verbalized understanding. Patient advised to call surgeon office or pre surgery nurse liaison [phone] if any additional questions.
[2023-11-18] VITALS (18 sets, daily range): BP systolic 118–171; BP diastolic 44–143; PULSE 80–100; RESP 13–22; TEMP 35.3–37; O2SAT 90–95
--- NOTE | ~2023-11-18 | XR_ITS ---
EXAMINATION: XR hip RT min 2V DATE: 11/18/2023 15:31 INDICATION: Total right hip arthroplasty. Postop. TECHNIQUE: 2 views of right hip on 3 radiographs were obtained. COMPARISON: Right hip radiographs 09/03/2023 FINDINGS: There is a total right hip arthroplasty in near-anatomic alignment. No fracture. IMPRESSION: 1. Total right hip arthroplasty in near-anatomic alignment. Reviewed, dictated and finalized at location A.
--- NOTE | 2023-11-18 07:07 | WPDHPUPDATE1 ---
History and Physical Update Update Date/Time: 11/18/23 07:07 History and Physical has been reviewed, including an updated exam of the patient. There are NO changes in the patient's condition. Risks, benefits, and alternatives have been discussed and questions answered. Patient agrees to proceed with procedure.
[2023-11-18] MEDS: ACETAMINOPHEN 500 MG TABLET 1000 MG PO (11:30)
[2023-11-18] MEDS: TRANEXAMIC ACID 1,000MG/ISO100 1,000 MG/100 ML BAG 200 MG IVPB (11:50)
--- NOTE | 2023-11-18 12:32 | WPDANESEPPF ---
Anes - Initial Pre Proc Eval Procedure: Operation Date: 11/18/23 12:30 Proposed Procedures p Right Total Hip Arthroplasty - Willard Hester MD Date/Time: 11/18/23 12:32 Surgeon: Willard Hester MD Pre Op Diagnosis: primary oa right hip Patient Data Age: 73 Gender: M Height: 1.74 m Weight: 120.7 kg Last Vital Signs Temp 37.0 C 11/18/23 11:00 Pulse 84 11/18/23 11:00 Resp 16 11/18/23 11:00 BP 144/72 H 11/18/23 11:58 Pulse Ox 93 11/18/23 11:00 O2 Del Method Room Air 11/18/23 11:00 Allergies Allergy/AdvReac Type Severity Reaction Status Date / Time Penicillins Allergy Unknown unknown Verified 11/18/23 11:38 meloxicam AdvReac Severe Itching Verified 11/18/23 11:38 varenicline [From Chantix] AdvReac Severe suicidal Verified 11/18/23 11:38 Home Medications Medication Instructions Recorded Confirmed Type coenzyme Q10 200 mg capsule (Co 200 mg PO DAILY 04/07/19 11/10/23 History Q-10) cholecalciferol (vitamin D3) 125 125 mcg PO DAILY 12/27/22 11/10/23 History mcg (5,000 unit) tablet cyanocobalamin (vitamin B-12) 1,000 mcg PO DAILY 12/27/22 11/10/23 History 1,000 mcg tablet ibuprofen 200 mg tablet (Advil) 400 mg PO Q6H PRN Pain 12/27/22 11/10/23 History amlodipine 5 mg tablet 5 mg PO DAILY #90 tabs 06/24/23 11/10/23 Rx atorvastatin 40 mg tablet 40 mg PO DAILY #90 tabs 07/11/23 11/10/23 Rx hydrochlorothiazide 12.5 mg tablet 12.5 mg PO DAILY #90 tabs 08/11/23 11/10/23 Rx magnesium oxide 400 mg (241.3 mg 400 mg PO DAILY #90 tabs 10/06/23 11/10/23 Rx magnesium) tablet fluticasone fur. 100 mcg-umeclid 1 inh inhalation DAILY #60 ea 10/14/23 11/10/23 Rx 62.5 mcg-vilant 25 mcg inhalat.powder (Trelegy Ellipta) aspirin 81 mg tablet,delayed 81 mg PO QAM 10/22/23 11/10/23 History release omega 6-hmv-psq-fish oil 1,200 mg 2 cap PO DAILY 10/22/23 11/10/23 History (144 mg-216 mg) capsule (Fish Oil) pantoprazole 20 mg tablet,delayed 20 mg PO DAILY #90 tabs 10/29/23 11/18/23 Rx release bupropion HCl 300 mg 24 hr tablet, 300 mg PO QAM #30 tabs 11/05/23 11/18/23 Rx extended release venlafaxine 75 mg capsule,extended 75 mg PO DAILY #90 caps 11/05/23 11/18/23 Rx release 24 hr Laboratory Tests 11/18/23 10:32 Blood Type O Positive Antibody Screen Negative Patient hx anesthesia problems: none Family hx anesthesia problems: none Results Review: All pre-operative results and documents have been reviewed as part of the pre-operative evaluation. [facility] Past Medical History Medical History Anxiety Closed fracture of one rib Dyslipidemia Essential hypertension GERD (gastroesophageal reflux disease) Hypothyroidism Iron deficiency anemia Multinodular goiter TAMI (obstructive sleep apnea) Other hemorrhoids Surgical perforation of duodenum Vitamin D deficiency Surgical History Surgical History History of cervical spinal surgery History of spinal surgery Status post total hip replacement, left (~01/20/23) Family History Family History Father Acute myocardial infarction Diabetes mellitus Malignant neoplasm of prostate Sibling Family history of cardiovascular disease Mother Family history of cardiovascular disease Other Hypertension Social History Social History Social History: Patient currently lives at home with his , Meghana Yan. Surrogate decisionmaker is . Full code. Former smoker - cessation in July 14, 2022 (as of 01/21/23). Smoking packs per day: 1 Smoking cigarettes per day: 20.0 Years smoked: 55 Smoking pack-years: 55.00 Smoking status: Former smoker Tobacco type: cigarettes Smoking end date: 09/06/23 Additional smoking assessment comments: DENIES ANY FORM
[2023-11-18] MEDS: ceFAZolin 3 GM/D5W 100 ML 100 ML IVPB (12:54)
[2023-11-18] MEDS: SODIUM CHLORIDE 0.9% IV 37.7 ML, MORPHINE SULFATE INJ (*CRX) 2 MG, ROPivacaine HCL 1% 2... INFILTRATE (13:25)
[2023-11-18] MEDS: TRANEXAMIC ACID 1,000 MG/10 ML AMPUL 1000 MG IV PUSH (14:35)
--- NOTE | 2023-11-18 15:01 | W.PM.PROC2 ---
Procedure Note - Detailed Date of Procedure 11/18/23 Pre-op Diagnosis Severe osteoarthritis right hip Post-op Diagnosis Same Procedure Performed Right Total Hip Arthroplasty Surgeon Willard Hester MD Ion Exchange Operator Leonarda Mccarthy PA-C Anesthesia General Findings Good bone quality. Significant obesity. Description of Procedure The patient was given preoperative antibiotics. A general anesthetic was administered. The patient was carefully placed in the lateral decubitus position on the PEG board. The shoulders and hips were carefully positioned for component and leg length positioning reference. The hip was prepped and draped in the usual sterile fashion. A longitudinal incision was created over the posterior aspect of the greater trochanter. Careful dissection was brought down through the deep fascia with electrocautery. A minimally invasive optimized posterior approach to the hip was performed. The short external rotators and capsule were taken down in an L-shaped capsulotomy. The tissue was tagged for later repair using number 2 high strength suture. The femoral neck was measured and taken in situ. The femoral head was removed. The acetabulum was carefully exposed. The inferior capsule was released. The labrum was resected. The acetabulum was sequentially reamed to the intended cup size. The cup was impacted into position with excellent press-fit. Typical anatomic landmarks, including the bony contact points as well as the inferior transverse acetabular ligament were used to confirm cup positioning with preoperative templating. Attention was turned to the femur, which was carefully exposed. The hip was reamed and then broached sequentially. Excellent press-fit was obtained with the broach. The hip was trialed. Measurements were utilized, including the lesser trochanter as well as the center of the femoral head and the tip of the trochanter, and excellent assessment of the offset and leg lengths were confirmed. The real component was impacted into position. Trialing confirmed appropriate leg length and offset with soft tissue balancing as well apparent feel of the leg, both at the knee and the heel. Soft tissues were assessed using the the iliotibial band. Reduction of the posterior capsule and external rotators were also used as a secondary assessment. The hip was copiously irrigated with pulsatile lavage periodically throughout the procedure. The real components were then assembled and reduced. The hip was stable throughout typical maneuvers, including extension, external rotation to 70 degrees, the position of sleep as well as flexion to 90 degrees with internal rotation past 35 degrees. The shake test confirmed stability without impingement. Osteophytes were removed as necessary. The short external rotators and capsule were repaired back to the posterior trochanter through drill holes. The deep fascia was repaired with running number 2 barbed suture, followed by 2-0 Stratafix suture and 3-0 Stratafix suture in the dermis. Steri-Strips were placed on the skin, followed by a sterile occlusive dressing. There were no complications. Meticulous hemostasis was maintained with the AquaMantys device. The patient was brought to the recovery room in stable condition. There were no complications. Physician public aid eligibility assistant, Leonarda Mccarthy PA-C, required for surgery; including patient positioning, draping, tissue retraction, maintaining instrument position, hip dislocation/ relocation, wound closure, and dressing placement. Implants The Accolade II hip stem, 127 degree size 5 , was utilized with excellent press-fit. The 56 mm Trident II acetabular component was impacted with excellent press-fit stability. 10 degree elevated polyethylene liner the +2.5, 36 mm Biolox ceramic femoral head was utilized. Estimated Blood Loss 200 Drains No Packing No Pathology None sent Complications No immediate complications Condition Stable Disposition
[2023-11-18] MEDS: LACTATED RINGERS 1,000 ML 30 ML IV CONT (15:04)
--- NOTE | 2023-11-18 17:15 | PC.NURSE ---
This patient, Henrry Yan, was admitted to 3 [facility] Surg Room 326-01. Patient/family oriented to hospital policies and general routines including ID bracelet, bed and alarms, visiting hours, pain management, procedures, bathroom and other care routines, personal items, smoking policy, room service/diet, and visiting hours. Information on how to activate the Rapid Response Team has been discussed. Patient/Family are encouraged to report perceived risks to care and to ask questions if they do not understand what they are told or what they should do.
[2023-11-18] MEDS: oxyCODONE/ACETAMINOPHEN (*CRX) 10-325 MG TABLET 1 TAB PO (17:34)
[2023-11-18] MEDS: ACETAMINOPHEN 325 MG TABLET 650 MG PO (18:23)
[2023-11-18] MEDS: SENNA/DOCUSATE SODIUM TABLET 2 TAB PO (18:23)
[2023-11-18] MEDS: ASPIRIN 81 MG ENTERIC TABLET PO (20:44)
[2023-11-18] MEDS: FAMOTIDINE 20 MG TABLET PO (20:45)
[2023-11-18] MEDS: ceFAZolin 2 GM/D5W 50 ML 2 GM/50 ML BAG IVPB (20:45)
[2023-11-19 02:53] VITALS: BP 137/64; PULSE 72; RESP 16; TEMP 36.5; O2SAT 94
[2023-11-19] MEDS: ACETAMINOPHEN 325 MG TABLET 650 MG PO ×2 (05:35→12:03)
[2023-11-19] MEDS: ceFAZolin 2 GM/D5W 50 ML 2 GM/50 ML BAG IVPB ×2 (05:35→12:00)
[2023-11-19 05:36] LABS: Basophils Absolute Auto 0.1 K/mm3 (0.0-0.1); Basophils Percent Auto 0.3 % (0.2-1.2); Hematocrit 38.7 % (42.0-52.0); Hemoglobin 13.2 g/dL (14.0-18.0); Immature Granulocyte Absolute 0.15 K/mm3 (0.00-0.031); Immature Granulocyte Percent A 0.8 % (0-0.5); Lymphocytes Absolute Auto 1.34 K/mm3 (0.9-3.2); Lymphocytes Percent Auto 6.8 % (18.3-44.2); Mean Corpuscular HGB Conc 34.1 g/dl (32-36); Mean Corpuscular Hemoglobin 33.1 pg (26-34); Mean Platelet Volume 9.3 fl (7.4-10.4); Monocytes Absolute Auto 1.7 K/mm3 (0.1-0.6); Monocytes Percent Auto 8.6 % (2.6-8.5); Neutrophils Absolute Auto 16.5 K/mm3 (1.3-6.7); Neutrophils Percent Auto 83.5 % (45.5-73.1); Platelet Count Result 314 k/mm3 (150-375); Red Blood Count 3.99 M/mm3 (4.6-6.20); Red Cell Distribution Width 13.4 % (11.5-14.5); White Blood Count 19.7 K/mm3 (4.5-10.0)
[2023-11-19 05:39] LABS: Anion Gap 11 mmol/L (4-12); Blood Urea Nitrogen 23 mg/dL (9-20); Calcium 8.8 mg/dL (8.4-10.2); Carbon Dioxide 23 mmol/L (22-30); Chloride 100 mmol/L (98-107); Estimated CRCL calculation 70 ml/min; Estimated Glomerular Filt Rate > 60; Glucose 130 mg/dL (65-110); Potassium 4.4 mmol/L (3.4-5.0); Sodium 134 mmol/L (137-145)
[2023-11-19] MEDS: oxyCODONE/ACETAMINOPHEN (*CRX) 10-325 MG TABLET 1 TAB PO ×2 (05:40→12:03)
--- NOTE | 2023-11-19 06:51 | PC.NURSE ---
I have reviewed the LPNs charting at this time and I agree with the documentation. Will continue to monitor patient at this time.
[2023-11-19 06:53] VITALS: BP 128/72; PULSE 73; RESP 16; TEMP 36.6; O2SAT 94
[2023-11-19 08:00] VITALS: BP 142/71; PULSE 89; RESP 18; TEMP 36.2; O2SAT 92
--- NOTE | 2023-11-19 08:21 | PM.DS ---
DS: Admitting Diagnosis Discharge Date 11/19/23 Admitting Diagnosis Hip arthritis. DS: Discharge Diagnosis Discharge Diagnosis (1) Status post total hip replacement, right: Code(s): Z96.641 - Presence of right artificial hip joint Status: Acute Plan Postop day 1: Right total Hip arthroplasty. Patient tolerated procedure well. He does have an elevated white count after surgery, 19.7. He does not have any symptoms consistent with infection. This happened after his contralateral total hip arthroplasty in January 2023 and was down to 11 the next day. This is just a reaction to the surgery. He will go home with extended antibiotics. He has a history of infection after surgery on his back. Pain manageable with pain medication. No numbness or tingling. We had a lengthy discussion regarding postoperative wound care, limitations, expectations, and exercises. Patient shows good understanding. He has had initial physical therapy and is tolerating it well. DVT prophylaxis: 81 mg baby aspirin b.i.d. for 14 days. Pain medication: Percocet. Ibuprofen. Antibiotic: Keflex for 3 weeks. Patient has followup appointment with Dr. Hester in 3 weeks. DS: Summary Hospital Course Reason for hospitalization: Total hip arthroplasty Hospital Course: Patient tolerated procedure well. Has had initial PT/OT and made good progress. Status at Discharge Functional status at discharge: uses cane/walker Overall status at discharge: patient is progressing back to baseline Time Spent with Patient Time attestation: Total time spent providing and/or coordinating discharge services: Exam Narrative: Obese 73 y/o male. Resting comfortably in bed. Wearing compression socks bilaterally. Dressing dry and intact with no drainage. Moderate swelling. No ecchymosis. No erythema. No hematoma. Range of motion limited due to pain. Calf nontender. Thigh nontender. Neurologic status intact. No varicosities. Distal pulses palpable. DS: Data Data Completed and Pending Labs on day of discharge: Labs from last 24 hours 11/19/23 11/18/23 05:09 10:32 WBC 19.7 H RBC 3.99 L Hgb 13.2 L Hct 38.7 L MCV 97.0 MCH 33.1 MCHC 34.1 RDW 13.4 Plt Count 314 MPV 9.3 Immature Gran % (Auto) 0.8 H Neut % (Auto) 83.5 H Lymph % (Auto) 6.8 [place] % (Auto) 8.6 H Eos % (Auto) 0.0 Baso % (Auto) 0.3 Lymph # (Auto) 1.34 [place] # (Auto) 1.7 H Eos # (Auto) 0.0 Baso # (Auto) 0.1 Abs Immat Gran (auto) 0.15 H Absolute Neuts (auto) 16.5 H Absolute Nucleated RBC 0.000 Nucleated RBC % 0.0 Sodium 134 L Potassium 4.4 Chloride 100 Carbon Dioxide 23 Anion Gap 11 BUN 23 H Creatinine 1.10 Estim Creat Clear Calc 70 Estimated GFR > 60 Glucose 130 H Calcium 8.8 Blood Type O Positive Antibody Screen Negative Discharge Plan Discharge Patient Disposition: Home, Self-Care Discharge Instructions: See green instruction sheets Stand Alone Forms: General Discharge Instructions Follow-up/Referrals: Leonarda Mccarthy PA [Physician Intensive Care Specialist] - Discharge Medications: New aspirin 81 mg tablet,delayed release (DR/EC) 81 mg PO BID 14 Days Qty: 28 0RF prednisone 5 mg tablet 5 mg PO DAILY 21 Days Qty: 21 0RF oxycodone-acetaminophen 5-325 mg tablet 1 - 2 tablet PO Q4-6H MDD 6 PRN (Reason: pain) Qty: 30 0RF cephalexin 500 mg capsule 500 mg PO BID 21 Days Qty: 42 0RF Rx Instructions: Take twice a day for 10 days. Continued coenzyme Q10 [Co Q-10] 200 mg capsule 200 mg PO DAILY bupropion HCl 300 mg tablet extended release 24 hr 300 mg PO QAM Qty: 30 0RF venlafaxine 75 mg capsule,extended release 24hr 75 mg PO DAILY Qty: 90 0RF cyanocobalamin (vitamin B-12) 1,000 mcg Tablet 1,000 mcg PO DAILY cholecalciferol (vitamin D3) 125 mcg (5,000 unit) Tablet 125 mcg PO DAILY ibuprofen [Advil] 200 mg Tablet 4
[2023-11-19] MEDS: oxyCODONE/ACETAMINOPHEN (*CRX) 5-325 MG TABLET 1 TABLET PO (08:23)
[2023-11-19] MEDS: VENLAFAXINE HCL XR 75 MG CAP.ER.24H PO (08:24)
[2023-11-19] MEDS: PANTOPRAZOLE SOD SESQUIHYDRATE 20 MG TAB PO (08:24)
[2023-11-19 08:25] VITALS: O2SAT 92
[2023-11-19] MEDS: amLODIPine BESYLATE 5 MG TABLET PO (08:25)
[2023-11-19] MEDS: ASPIRIN 81 MG ENTERIC TABLET PO (08:25)
[2023-11-19] MEDS: SENNA/DOCUSATE SODIUM TABLET 2 TAB PO (08:25)
[2023-11-19] MEDS: FAMOTIDINE 20 MG TABLET PO (08:25)
[2023-11-19] MEDS: buPROPion HCL XL (24 HR) 150 MG TABCR 300 MG PO (08:25)
[2023-11-19] MEDS: hydroCHLOROthiazide 12.5 MG CAPSULE PO (08:25)
[2023-11-19] MEDS: ATORVASTATIN 40 MG TABLET PO (08:25)
--- NOTE | 2023-11-19 08:32 | P.PNAN_ITS ---
Anes - Prog Note Post-Op Date/Time: 11/19/23 08:32 Cardiovascular status: normal Respiratory status: normal Airway patency: baseline Mental status: baseline Post-Op hydration status: normal Vital Signs: Last Vital Signs Temp 36.2 C L 11/19/23 08:00 Pulse 89 11/19/23 08:00 Resp 18 11/19/23 08:00 BP 128/72 11/19/23 06:53 Pulse Ox 92 11/19/23 08:00 O2 Del Method Room Air 11/18/23 20:00 O2 Flow Rate 2 11/18/23 17:20 Pain Score (VAS): 06/28 I/O: Intake & Output 11/18/23 11/19/23 11/19/23 23:59 07:59 15:59 Intake Total 850 50 Output Total 675 Balance 850 -625 Laboratory Tests 11/19/23 05:09 11/19/23 05:09 11/18/23 11/19/23 10:32 05:09 WBC 19.7 H RBC 3.99 L Hgb 13.2 L Hct 38.7 L MCV 97.0 MCH 33.1 MCHC 34.1 RDW 13.4 Plt Count 314 MPV 9.3 Immature Gran % (Auto) 0.8 H Neut % (Auto) 83.5 H Lymph % (Auto) 6.[address] [place] % (Auto) 8.6 H Eos % (Auto) 0.0 Baso % (Auto) 0.3 Lymph # (Auto) 1.34 [place] # (Auto) 1.7 H Eos # (Auto) 0.0 Baso # (Auto) 0.1 Abs Immat Gran (auto) 0.15 H Absolute Neuts (auto) 16.5 H Absolute Nucleated RBC 0.000 Nucleated RBC % 0.0 Sodium 134 L Potassium 4.4 Chloride 100 Carbon Dioxide 23 Anion Gap 11 BUN 23 H Creatinine 1.10 Estim Creat Clear Calc 70 Estimated GFR > 60 Glucose 130 H Calcium 8.8 Blood Type O Positive Antibody Screen Negative Post-procedural complaints: none Patient Feedback: Patient satisfied with anesthetic care.
[2023-11-19] MEDS: FLUTICASONE/UMECLIDIN/VILANTER 100-62.5-25 MCG ELLIPTA 1 PUFF INHALATION (08:35)
[2023-11-19 12:00] VITALS: BP 151/64; PULSE 84; RESP 18; TEMP 36.5; O2SAT 92
--- NOTE | 2023-11-19 12:06 | PCPTNOTE ---
On 11/19/23, the student, [Carina Donald], provided care and completed [facility] documentation on this patient. I have reviewed the student's documentation and agree with the findings.
== END 2023-11-19 12:45 | disposition home or self-care (01) ==
LOC: ANHSURGERY 12:58 → ANH3MEDSUR 17:24
PROVIDERS: Physician Assistant Surgical; PCP Physician Assistant Medical; Visit Provider Orthopaedic Surgery
PROC: (CPT 27130; principal; 2023-11-18 12:30)
DX: M16.11 Unilateral primary osteoarthritis, right hip (principal); I10 Essential (primary) hypertension; E03.9 Hypothyroidism, unspecified; E78.5 Hyperlipidemia, unspecified; K21.9 Gastro-esophageal reflux disease without esophagitis; E55.9 Vitamin D deficiency, unspecified; D50.9 Iron deficiency anemia, unspecified; F41.9 Anxiety disorder, unspecified; G47.33 Obstructive sleep apnea (adult) (pediatric); Z87.891 Personal history of nicotine dependence; E66.9 Obesity, unspecified; Z68.39 Body mass index [BMI] 39.0-39.9, adult; Z79.51 Long term (current) use of inhaled steroids; Z79.82 Long term (current) use of aspirin
CPT/HCPCS: 27130; 36415; 73502; 80048; 83036; 85025; 86850; 86900; 86901; 87641; 93005; 94640; 97110; 97161; 97165; 97535; A9270; C1776; J0171; J0330; J0690; J1100; J1170; J1885; J2270; J2405; J2704; J2795; J3010; J7120

== ENCOUNTER 2024-03-04 01:44 | Day surgery (SDC) | payer MEDICARE, SELFPAY ==
[2024-02-23 14:50] VITALS: BMI 38.0
[2024-03-04 08:29] VITALS: BP 144/90; PULSE 84; RESP 20; TEMP 36.1; O2SAT 93; BMI 37.3
[2024-03-04] MEDS: LACTATED RINGERS 1,000 ML 150 ML IV CONT (08:37)
--- NOTE | 2024-03-04 09:08 | P.PNAN_ITS ---
Anes - Initial Pre Proc Eval Procedure: Operation Date: 03/04/24 09:30 Proposed Procedures p Colonoscopy - Travis Banks MD Date/Time: 03/04/24 09:08 Surgeon: Travis Banks MD Pre Op Diagnosis: hx colon polyps Patient Data Age: 74 Gender: M Height: 1.78 m Weight: 118.1 kg Last Vital Signs Temp 36.1 C L 03/04/24 08:29 Pulse 84 03/04/24 08:29 Resp 20 03/04/24 08:29 BP 144/90 H 03/04/24 08:29 Pulse Ox 93 03/04/24 08:29 O2 Del Method Room Air 03/04/24 08:29 Allergies Allergy/AdvReac Type Severity Reaction Status Date / Time Penicillins Allergy Unknown unknown Verified 03/04/24 08:27 meloxicam AdvReac Severe Itching Verified 03/04/24 08:27 [email or web address] [From Chantix] AdvReac Severe suicidal Verified 03/04/24 08:27 Home Medications Medication Instructions Recorded Confirmed Type coenzyme Q10 200 mg capsule (Co 200 mg PO DAILY 04/07/19 03/04/24 History Q-10) cholecalciferol (vitamin D3) 125 125 mcg PO DAILY 12/27/22 03/04/24 History mcg (5,000 unit) tablet cyanocobalamin (vitamin B-12) 1,000 mcg PO DAILY 12/27/22 03/04/24 History 1,000 mcg tablet ibuprofen 200 mg tablet (Advil) 400 mg PO Q6H PRN Pain 12/27/22 03/04/24 History aspirin 81 mg tablet,delayed 81 mg PO QAM 10/22/23 03/04/24 History release omega 1-ikb-qqm-fish oil 1,200 mg 2 cap PO DAILY 10/22/23 03/04/24 History (144 mg-216 mg) capsule (Fish Oil) magnesium oxide 400 mg (241.3 mg 400 mg PO DAILY #90 tabs 01/05/24 03/04/24 Rx magnesium) tablet oxycodone-acetaminophen 5 mg-325 1 - 2 tablet PO Q4-6H PRN pain #14 01/07/24 03/04/24 Rx mg tablet tabs amlodipine 5 mg tablet 5 mg PO DAILY #90 tabs 01/20/24 03/04/24 Rx atorvastatin 40 mg tablet 40 mg PO DAILY #90 tabs 01/20/24 03/04/24 Rx fluticasone fur. 100 mcg-umeclid 1 inh inhalation DAILY #60 ea 01/20/24 03/04/24 Rx 62.5 mcg-vilant 25 mcg inhalat.powder (Trelegy Ellipta) hydrochlorothiazide 12.5 mg tablet 12.5 mg PO DAILY #90 tabs 01/20/24 03/04/24 Rx pantoprazole 20 mg tablet,delayed 20 mg PO DAILY #90 tabs 01/20/24 03/04/24 Rx release venlafaxine 75 mg capsule,extended 75 mg PO DAILY #90 caps 01/20/24 03/04/24 Rx release 24 hr Patient hx anesthesia problems: none Family hx anesthesia problems: none Results Review: All pre-operative results and documents have been reviewed as part of the pre- operative evaluation. [facility] Past Medical History Medical History Anxiety Closed fracture of one rib Dyslipidemia Essential hypertension GERD (gastroesophageal reflux disease) Hypothyroidism Iron deficiency anemia Multinodular goiter TAMI (obstructive sleep apnea) Other hemorrhoids Surgical perforation of duodenum Vitamin D deficiency Surgical History Surgical History History of cervical spinal surgery History of spinal surgery Status post total hip replacement, left (~01/20/23) Family History Family History Father Acute myocardial infarction Diabetes mellitus Malignant neoplasm of prostate Sibling Family history of cardiovascular disease Mother Family history of cardiovascular disease Other Hypertension Social History Social History Social History: Patient currently lives at home with his , Meghana Yan. Surrogate decisionmaker is . Full code. Former smoker - cessation in July 14, 2022 (as of 01/21/23). Smoking packs per day: 1 Smoking cigarettes per day: 20.0 Years smoked: 57 Smoking pack-years: 57.00 Smoking status: Current every day smoker Tobacco type: cigarettes Smoking end date: 09/06/23 Additional smoking assessment comments: DENIES ANY FORM OF TOBACCO USE Alcohol intake: current Drinks per week: 20 Substance use: never Substance use type: does not use Do You Feel Safe in your Home?: Yes Lack of Transportation: No Lack of Food: Never True Current Housing: I Have Housing Concerned About Future Housing: No Difficulty Paying Gas/Electric Bills: Decline to Answer Difficulty Paying for Meds: Decline to Answer Currently Unemployed: Decline to Answer Education: Bachelor's Degree Difficulty w/ Childcare or Family Care: No Living arrangements: alone Additional living arrangements comments: Occupation/Education: retired Gender identity (if verbalized by the patient): Male Spiritual care concerns: No Anes - Eval Final PreProcedure Day of Procedure 03/04/24 09:09 Patient weight: obese Heart: regular rate and rhythm Lungs: clear to auscultation Airway: Mallampati scale class III Neurological: alert and oriented Last oral intake: >/= 8 hours ASA classification: III Emergent: no Anesthetic plan: proceed Anesthesia type and monitoring: general GIVS and standard monitoring Results Review: All pre-operative results and documents have been reviewed as part of the pre- operative evaluation. Informed Consent: The patient's anesthetic plan and its attendant risks and benefits were discussed with the patient/family/POA. Questions were solicited and answers provided to the satisfaction of the patient/family/POA.
--- NOTE | 2024-03-04 09:14 | PM.HPGS ---
History of Present Illness History of Present Illness Consent: Risks, benefits, and alternatives have been discussed and questions answered. Patient agrees to proceed with procedure. Chief complaint: hx colon polyps Narrative: Henrry Yan is a 74 year old male with colon polyp more than 5 years ago Review of Systems Review of Systems: All systems reviewed & are unremarkable except as noted in HPI and below PMFSH Past Medical History Medical History (Updated 03/04/24 @ 09:15 by Travis Banks MD) Anxiety Closed fracture of one rib Colon polyp Dyslipidemia Essential hypertension GERD (gastroesophageal reflux disease) Hypothyroidism Iron deficiency anemia Multinodular goiter TAMI (obstructive sleep apnea) Other hemorrhoids Surgical perforation of duodenum Vitamin D deficiency Surgical History Surgical History History of cervical spinal surgery History of spinal surgery Status post total hip replacement, left (~01/20/23) Family History Family History Father Acute myocardial infarction Diabetes mellitus Malignant neoplasm of prostate Sibling Family history of cardiovascular disease Mother Family history of cardiovascular disease Other Hypertension Social History Social History Social History: Patient currently lives at home with his , Meghana Yan. Surrogate decisionmaker is . Full code. Former smoker - cessation in July 14, 2022 (as of 01/21/23). Smoking packs per day: 1 Smoking cigarettes per day: 20.0 Years smoked: 57 Smoking pack-years: 57.00 Smoking status: Current every day smoker Tobacco type: cigarettes Smoking end date: 09/06/23 Additional smoking assessment comments: DENIES ANY FORM OF TOBACCO USE Alcohol intake: current Drinks per week: 20 Substance use: never Substance use type: does not use Do You Feel Safe in your Home?: Yes Lack of Transportation: No Lack of Food: Never True Current Housing: I Have Housing Concerned About Future Housing: No Difficulty Paying Gas/Electric Bills: Decline to Answer Difficulty Paying for Meds: Decline to Answer Currently Unemployed: Decline to Answer Education: Bachelor's Degree Difficulty w/ Childcare or Family Care: No Living arrangements: alone Additional living arrangements comments: Occupation/Education: retired Gender identity (if verbalized by the patient): Male Spiritual care concerns: No Meds Home Medications and Allergies Home Medications Medication Instructions Recorded Confirmed Type coenzyme Q10 200 mg capsule (Co 200 mg PO DAILY 04/07/19 03/04/24 History Q-10) cholecalciferol (vitamin D3) 125 125 mcg PO DAILY 12/27/22 03/04/24 History mcg (5,000 unit) tablet cyanocobalamin (vitamin B-12) 1,000 mcg PO DAILY 12/27/22 03/04/24 History 1,000 mcg tablet ibuprofen 200 mg tablet (Advil) 400 mg PO Q6H PRN Pain 12/27/22 03/04/24 History aspirin 81 mg tablet,delayed 81 mg PO QAM 10/22/23 03/04/24 History release omega 5-sdv-kgz-fish oil 1,200 mg 2 cap PO DAILY 10/22/23 03/04/24 History (144 mg-216 mg) capsule (Fish Oil) magnesium oxide 400 mg (241.3 mg 400 mg PO DAILY #90 tabs 01/05/24 03/04/24 Rx magnesium) tablet oxycodone-acetaminophen 5 mg-325 1 - 2 tablet PO Q4-6H PRN pain #14 01/07/24 03/04/24 Rx mg tablet tabs amlodipine 5 mg tablet 5 mg PO DAILY #90 tabs 01/20/24 03/04/24 Rx atorvastatin 40 mg tablet 40 mg PO DAILY #90 tabs 01/20/24 03/04/24 Rx fluticasone fur. 100 mcg-umeclid 1 inh inhalation DAILY #60 ea 01/20/24 03/04/24 Rx 62.5 mcg-vilant 25 mcg inhalat.powder (Trelegy Ellipta) hydrochlorothiazide 12.5 mg tablet 12.5 mg PO DAILY #90 tabs 01/20/24 03/04/24 Rx pantoprazole 20 mg tablet,delayed 20 mg PO DAILY #90 tabs 01/20/24 03/04/24 Rx release venlafaxine 75 mg capsule,extended 75 mg PO DAILY #90 caps 01/20/24 03/04/24 Rx release 24 hr Allergies Allergy/AdvReac Type Severity Reaction Status Date / Time Penicillins Allergy Unknown unknown Verified 03/04/24 08:27 meloxicam AdvReac Severe Itching Verified 03/04/24 08:27 [email or web address] [From Chantix] AdvReac Severe suicidal Verified 03/04/24 08:27 Vital Signs Vital Signs - 24 hr 03/04/24 08:29 Temperature 97 F L Pulse Rate 84 Respiratory Rate 20 Blood Pressure 144/90 H Pulse Oximetry 93 Oxygen Delivery Room Air Exam Const: General: comfortable and no acute distress HENMT: Face/Nose/Sinus: Normal nares present Eyes: General: appearance normal, both eyes and all related structures Neck: Neck: no JVD Resp: Auscultation: clear to auscultation bilaterally Cardio: Rate: regular rate Rhythm: regular rhythm GI: Inspection: non-distended GI Palp: Yes Soft to palpation Skin: General skin exam: normal color Neuro: General: gait normal Speech: normal speech Extrem: General: normal to inspection Psych: Mental Status: mental status grossly normal Assessment and Plan Assessment and plan (1) Colon polyp: Code(s): K63.5 - Polyp of colon Status: Acute Assessment and Plan: colonoscopy
[2024-03-04 09:31] VITALS: BP 104/56; PULSE 70; RESP 22; O2SAT 93
[2024-03-04 09:41] VITALS: BP 124/68; PULSE 74; RESP 22; O2SAT 97
[2024-03-04 09:51] VITALS: BP 110/62; PULSE 70; RESP 20; O2SAT 100
== END 2024-03-04 10:00 | disposition home or self-care (01) ==
PROVIDERS: PCP Physician Assistant Medical; Visit Provider Internal Medicine Gastroenterology
PROC: 0DJD8ZZ Inspection of Lower Intestinal Tract, Via Natural or Artificial Opening Endoscopic (ICD-10-PCS; CPT 45378; principal; 2024-03-04 09:30)
DX: Z12.11 Encounter for screening for malignant neoplasm of colon (principal); D12.2 Benign neoplasm of ascending colon; K62.1 Rectal polyp; K57.30 Diverticulosis of large intestine without perforation or abscess without bleeding; K64.8 Other hemorrhoids; I10 Essential (primary) hypertension; E78.5 Hyperlipidemia, unspecified; E03.9 Hypothyroidism, unspecified; E55.9 Vitamin D deficiency, unspecified; F41.9 Anxiety disorder, unspecified; K21.9 Gastro-esophageal reflux disease without esophagitis; Z79.51 Long term (current) use of inhaled steroids; Z79.891 Long term (current) use of opiate analgesic; Z87.891 Personal history of nicotine dependence; E66.9 Obesity, unspecified; Z68.37 Body mass index [BMI] 37.0-37.9, adult
CPT/HCPCS: 45385; 88305; J2003; J2704; J7120